=== PATIENT | male | born 1995 | race African-American/Black ===

== ENCOUNTER 2016-05-23 15:29 | Emergency (ER) | payer MEDICAID ==
[~2016-05-23] VITALS: Ht 175.3 cm; Wt 86.0 kg
[2016-05-23 17:46] VITALS: BP 139/74
== END 2016-05-23 17:48 | disposition home or self-care (01) ==
LOC: ER 16:29
DX: J02.9 Acute pharyngitis, unspecified (principal); H92.03 Otalgia, bilateral; R10.9 Unspecified abdominal pain; F12.10 Cannabis abuse, uncomplicated; R63.0 Anorexia
CPT/HCPCS: 99283